=== PATIENT | female | born 1990 | race African-American/Black ===

== ENCOUNTER 2016-11-02 20:10 | Emergency (ER) | payer BC, MEDICAID ==
--- NOTE | 2016-11-02 20:30 | ERNOTE ---
ER Female HPI Date of Service: 11/02/16 - Was at work and after 12 hours of work had a sudden gush of vaginal blood. She had been having some minimal spotting but this was significantly more and ran down her leg. She denies any cramping, pain, or passing any tissue. No lightheadedness, near syncope. Stated Complaint: 13 WEEKS . BLEEDING Presenting Symptoms: vaginal bleeding Time Seen by Provider: 11/02/16 20:27 Source: patient Exam Limitations: no limitations Immunizations: IMMUNIZATION HX Immunizations Up to Date Yes Allergies/Adverse Reactions: Allergies No Known Allergies Allergy (Verified 11/02/16 20:19) Home Medications: HOME MEDICATIONS S 1 tab PO DAILY 11/22/13 [Last Taken 11/22/13 17:14] Nitrofurantoin/Nitrofuran Mac [Macrobid] 100 mg PO Q12H 11/02/16 [Last Taken Unknown] - History of Present Illness Date (Duration): 11/02/16 Time (Timing): 20:00 Timing: Present: constant Prior Abdominal Problems: Present: none, other - Previous 3 years ago. Review of Systems - Review of Systems Constitutional: Present: no symptoms reported ENT: Present: no symptoms reported Respiratory: Present: no symptoms reported Cardiology: Present: no symptoms reported Gastrointestinal/Abdominal: Present: no symptoms reported Genitourinary: Present: no symptoms reported Musculoskeletal: Present: no symptoms reported Neurological: Present: no symptoms reported Hematologic/Lymphatic: Present: other - Blood type O-positive on 05/04/2013 - Patient's Past Medical History Patient History - Cardiac/Respiratory: No pertinent hx Patient History - Cancer: History Unknown Patient History - Surgical Procedures: LMP (females 10-50): other LMP (Calendar): 07/22/16 - Social History Living Situations: home Psych History: No pertinent hx Smoking Status: Current every day smoker Patient requests Smoking Cessation Consult: No Initiate information on Smoking Cessation: No - Immunizations Immunizations Up to Date: Yes Physical Exam - Physical Exam General Appearance: Present: wd/wn, alert, no apparent distress Eye Exam: Normal inspection: bilateral Ears, Nose, Throat: Present: normal ENT inspection Neck: Present: normal inspection Respiratory: Present: no respiratory distress Cardiovascular/Chest: Present: regular rate, rhythm Gastrointestinal/Abdominal: Present: nontender Extremity Exam: Present: normal inspection Neurological Exam: Present: alert, oriented, no motor/sensory deficits Pelvic Exam: Present: discharge - Serosanguinous fluid filling vaginal vault. Once evacuated no evidence of active bleeding. Os not well visualized. No tissue noted. ED Progress - Vital Signs Patient's Vital Signs:: I have reviewed the patient's vital signs. Vital Signs: Vital Signs 11/02/16 20:15 Temperature 36.8 C Pulse Rate 92 Respiratory 18 Rate Blood Pressure 131/92 O2 Sat by Pulse 100 Oximetry - Progress/Reassessment Chief Complaint: Genitourinary Problem Plan - Plan Plan: Rest this weekend. Contact Dr. Fontana on Saturday for follow up. Return to ED if condition worsenes. Departure Clinical Impression: IUP (intrauterine ), incidental, Vaginal bleeding before 22 weeks gestation - Departure Disposition: Home self-care Condition: Good Instructions: Vaginal Bleeding During , Second Trimester, [id number] Additional Instructions: Rest with no strenuous activity or prolonged standing Follow up with OB physician on Saturday Referrals: Rocky Fontana DO [Primary Care Provider] -
[2016-11-02 21:03] LABS: Hematocrit 36.1 % (37.0-47.0); Hemoglobin 12.3 gm/dL (12.5-16.0); Mean Corpuscular Hemoglobin 31.7 pg (27-31); Mean Corpuscular Hgb Conc 34.1 g/dl (32-36); Mean Platelet Volume 9.6 fl (6.0-9.5); Neutrophil # 7.4 K/mm3 (1.3-6.0); Neutrophil % 76.9 % (42-75.0); Platelet Count 203 K/mm3 (150-450); Red Blood Count 3.88 M/mm3 (4.2-5.4); Red Cell Distribution Width 11.8 % (11.5-14.0); White Blood Count 9.6 K/mm3 (4.0-10.5)
[2016-11-02 21:17] LABS: Albumin * 3.7 gm/dl (3.4-5.0); Anion Gap 10.7 mmol/L (6.8-13.8); BUN/Creatinine Ratio 16.7 (9.0-21.6); Bilirubin, Total 0.6 mg/dL (0.0-1.1); Ca. Corrected For Albumin 8.6 mg/dL (8.4-10.2); Calcium * 8.7 mg/dL (7.9-10.9); Carbon Dioxide 28.9 mmol/L (24-32.6); Potassium 3.6 mmol/L (3.4-4.6)
[2016-11-02 22:43] VITALS: BP 117/47
== END 2016-11-02 22:43 | disposition home or self-care (01) ==
LOC: ER 20:10
DX: O20.9 Hemorrhage in early pregnancy, unspecified (principal); F17.200 Nicotine dependence, unspecified, uncomplicated; Z3A.13 13 weeks gestation of pregnancy

== ENCOUNTER 2016-11-29 07:11 | Emergency (ER) | payer BC ==
--- NOTE | 2016-11-29 07:42 | ERNOTE ---
<Jayson Jeong - Last Filed: 11/29/16 08:05> Abdominal HPI - General Chief Complaint: OB Screening Time Seen by Provider: 11/29/16 07:30 Source: patient Exam Limitations: no limitations - Immun/Allergies/Home Medications Immunizatons: IMMUNIZATION HX Immunizations Up to Date Yes History of Influenza Vaccine No Hx Pneumococcal Vaccination No Allergies/Adverse Reactions: Allergies No Known Allergies Allergy (Verified 11/29/16 07:20) Home Medications: HOME MEDICATIONS S 1 tab PO DAILY 11/22/13 [Last Taken 11/22/13 17:14] - History of Present Illness Narrative: 26 yo colored female presents at 17 w GA and states she has been having vaginal bleeding for 3-5 weeks and has been managed by her OB Dr. Fontana. This am she had three clots pass about the size of silver dollars. She has also had uterine cramping today. Timing: getting worse Quality: moderate, stabbing, throbbing Activities at Onset: none Modifying Factors - (Improves): Present: lying down - is better today but was worse yesterday, other - Standing is worse today but was better yesterday Associated Symptoms: Absent: nausea, vomiting Prior Treatment: Present: recently seen, treated by physician Review of Systems - Review of Systems Constitutional: Absent: recent illness, fever, chills EYE: Present: no symptoms reported ENT: Present: no symptoms reported Respiratory: Absent: shortness of breath, cough Cardiology: Absent: chest pain, palpitations Gastrointestinal/Abdominal: Absent: nausea, vomiting, constipation Genitourinary: Present: no symptoms reported Musculoskeletal: Present: no symptoms reported Skin: Present: no symptoms reported Neurological: Present: no symptoms reported Endocrine: Present: no symptoms reported Hematologic/Lymphatic: Present: no symptoms reported Psych: Present: no symptoms reported - Patient's Past Medical History Patient History - Medical: No pertinent hx Patient History - Cardiac/Respiratory: No pertinent hx Patient History - Cancer: History Unknown Patient History - Surgical Procedures: Patient History - Other: None LMP (females 10-50): LMP (Calendar): 07/22/16 - Social History Living Situations: home Abuse History: No History of abuse Psych History: No pertinent hx Smoking Status: Current every day smoker Have you smoked in the past 12 months: Yes Alcohol Use: none Drug Use: none - Immunizations Immunizations Up to Date: Yes Hx Pneumococcal Vaccination: No History of Influenza Vaccine: No Physical Exam - Physical Exam General Appearance: Present: wd/wn, alert, mild distress Respiratory: Present: no respiratory distress, no accessory muscle use Gastrointestinal/Abdominal: Present: nontender, nondistended, soft Back Exam: Present: normal inspection, normal range of motion Extremity Exam: Present: non-tender, normal range of motion, no edema Neurological Exam: Present: alert, oriented, normal mood/affect Skin Exam: Present: normal color, warm/dry Pelvic Exam: Present: active bleeding - vaginal vault full of clots. Very tender upon spec exam. Exam aborted until pain under control and U/S is accomplished ED Progress - Vital Signs Vital Signs: Vital Signs 11/29/16 07:14 Temperature 36.9 C Pulse Rate 87 Respiratory 16 Rate Blood Pressure 122/78 O2 Sat by Pulse 99 Oximetry - Progress/Reassessment Chief Complaint: OB Screening Progress:: Unchanged Progress Note-Subjective: 11/29/16 08:[address] Trevino OB infection control specialist. She will wait for U/S results and further examination of cervix when her pain is under control and give recommendations at that point. - Transfer of Care Physician Sign Out: Jayson Jeong Receiving Physician: Yash Maddox Pending Results: Pain-control - and U/S results Expected Disposition: Discharge Departure - Departure Clinical Impression: Vaginal bleeding before 22 weeks gestation Condition: Poor Instructions: Vaginal Bleeding During , Second Trimester Referrals: Rocky Fontana DO [Staff Physician] - <Yash Maddox - Last Filed: 11/29/16 09:22> Abdominal HPI - Immun/Allergies/Home Medications Immunizatons: IMMUNIZATION HX Immunizations Up to Date Yes History of Influenza Vaccine No Hx Pneumococcal Vaccination No ED Progress - Results and Orders Patient's Lab Results:: I have reviewed the patient's lab results. - Vital Signs Patient's Vital Signs:: I have reviewed the patient's vital signs. Vital Signs: Vital Signs 11/29/16 11/29/16 07:14 08:52 Temperature 36.9 C Pulse Rate 87 67 Respiratory 16 16 Rate Blood Pressure 122/78 115/55 O2 Sat by Pulse 99 100 Oximetry - CT/Ultrasound CT/Ultrasound Narrative: Ultrasound was reviewed and discussed with Dr. Trevino the local OB doctor. Plan - Plan Plan: At length discussion with both the patient and the mother. We discussed that at this point there is a viable present at 18 weeks 3 days, however we also discussed the new subchorionic marginal hematoma and the wrist to the that this hematoma might represent. I discussed with both the patient and the mother the conversation that I had with Dr. Trevino the [facility] OB physician. Dr. Trevino had recommended that the patient go home to bed rest for the next few days, no strenuous activity or lifting of any kind and to call Dr. Kumar Saturday. I relayed to both the patient and the mother that there was nothing medically that we could do at this point short of bed rest and the above recommendations and they both understood and the patient will call her OB physician Saturday. They were instructed to return if there was any extensive bleeding.
[2016-11-29 08:35] LABS: Hematocrit 32.7 % (37.0-47.0); Hemoglobin 11.1 gm/dL (12.5-16.0); Mean Cell Volume 95.6 fl (78-100); Mean Corpuscular Hemoglobin 32.5 pg (27-31); Mean Corpuscular Hgb Conc 33.9 g/dl (32-36); Mean Platelet Volume 9.7 fl (6.0-9.5); Neutrophil # 11.8 K/mm3 (1.3-6.0); Neutrophil % 84.6 % (42-75.0); Platelet Count 178 K/mm3 (150-450); Red Blood Count 3.42 M/mm3 (4.2-5.4); Red Cell Distribution Width 12.3 % (11.5-14.0)
[2016-11-29 08:44] LABS: INR 0.97 INR (0.90-1.10); Prothrombin Time (Patient) 10.1 Seconds (9.4-11.4)
[2016-11-29 08:48] LABS: Anion Gap 10.6 mmol/L (6.8-13.8); BUN/Creatinine Ratio 15.6 (9.0-21.6); Bilirubin, Total 0.4 mg/dL (0.0-1.1); Ca. Corrected For Albumin 8.9 mg/dL (8.4-10.2); Calcium * 8.4 mg/dL (7.9-10.9); Potassium 3.6 mmol/L (3.4-4.6); Total Protein 6.3 gm/dL (6.2-8.2)
[2016-11-29 08:53] VITALS: BP 115/55
== END 2016-11-29 09:44 | disposition home or self-care (01) ==
LOC: ER 07:11
DX: O20.9 Hemorrhage in early pregnancy, unspecified (principal); Z3A.18 18 weeks gestation of pregnancy

== ENCOUNTER 2016-11-29 23:17 | Inpatient (IN) | payer BC ==
[2016-11-29] MEDS ORDERED: ONDANSETRON HCL/PF 2 MG/ML VIAL IV ONE (23:34)
[2016-11-29] MEDS ORDERED: NORMAL SALINE 1,000 ML IV ONE (23:34)
[2016-11-29] MEDS ORDERED: ONDANSETRON HCL/PF 2 MG/ML VIAL ONE (23:36)
--- NOTE | 2016-11-29 23:42 | ERNOTE ---
Abdominal HPI - General Chief Complaint: OB Screening Time Seen by Provider: 11/29/16 23:31 Source: patient, family Exam Limitations: no limitations - Immun/Allergies/Home Medications Immunizatons: IMMUNIZATION HX Immunizations Up to Date Yes History of Influenza Vaccine No Hx Pneumococcal Vaccination No Allergies/Adverse Reactions: Allergies No Known Allergies Allergy (Verified 11/29/16 07:20) Home Medications: HOME MEDICATIONS S 1 tab PO DAILY 11/22/13 [Last Taken 11/22/13 17:14] - History of Present Illness Narrative: Pt was here early this am with vaginal bleeding. U/S was done and showed a 5.4 cm subchorionic hematoma. OB was consulted and she was sent home to bedrest and to follow up with Dr. Fontana on Saturday. Today she continued to worsen throughout the day with dark blood, clots and bright red blood later this evening. She cannot tell me how many pads she has been going through. Her pain has increased as well in both her abdomen and back Timing: getting worse Quality: severe, cramping Activities at Onset: none Modifying Factors - (Worsens): Present: movement Associated Symptoms: Present: back pain, nausea, vomiting Prior Abdominal Problems: Present: similar symptoms Prior Treatment: Present: recently seen, treated by physician Review of Systems - Review of Systems Constitutional: Present: chills. Absent: recent illness, fever EYE: Present: no symptoms reported ENT: Present: no symptoms reported Respiratory: Present: no symptoms reported Cardiology: Present: no symptoms reported Gastrointestinal/Abdominal: Present: nausea, vomiting Genitourinary: Present: See HPI Musculoskeletal: Present: back pain Skin: Present: no symptoms reported Neurological: Present: emotional problems - due to possible loss of this child Endocrine: Present: no symptoms reported Hematologic/Lymphatic: Present: no symptoms reported Psych: Present: no symptoms reported - Patient's Past Medical History Patient History - Medical: No pertinent hx Patient History - Cardiac/Respiratory: No pertinent hx Patient History - Cancer: History Unknown Patient History - Surgical Procedures: Patient History - Other: None LMP (females 10-50): LMP (Calendar): 07/23/16 - Social History Living Situations: home Abuse History: No History of abuse Psych History: No pertinent hx Smoking Status: Current every day smoker Alcohol Use: none Drug Use: none - Immunizations Immunizations Up to Date: Yes Hx Pneumococcal Vaccination: No History of Influenza Vaccine: No Physical Exam - Physical Exam General Appearance: Present: wd/wn, alert, moderate distress, severe distress Neck: Present: normal inspection, supple, full range of motion Respiratory: Present: no respiratory distress, normal breath sounds, lungs clear Cardiovascular/Chest: Present: regular rate, rhythm Gastrointestinal/Abdominal: Present: tenderness - difusely b/l lower quads. Absent: guarding, rebound Back Exam: Present: other - muscular tenderness Neurological Exam: Present: alert, oriented Skin Exam: Present: normal color, warm/dry Pelvic Exam: Present: active bleeding, other - multiple attempts with speculum exam and could not find the cervix due to active bleeding into the vaginal vault and positioning, pt severe discomfort before and with exam. ED Progress - Results and Orders Patient's Lab Results:: I have reviewed the patient's lab results. Results and Orders: Laboratory Tests 11/29/16 11/29/16 11/29/16 23:45 23:45 23:45 WBC 19.4 H D Hgb 12.2 L Hct 36.0 L Plt Count 190 Neutrophils % 87.7 H Sodium 137 Potassium 3.5 Chloride 101 Carbon Dioxide 24.4 Anion Gap 15.1 H BUN 6 Creatinine 0.59 Est GFR (Non-Af Amer) 161 H D BUN/Creatinine Ratio 10.2 Random Glucose 90 Calcium 8.3 Total Bilirubin 0.8 AST 12 ALT 14 L Alkaline Phosphatase 60 Total Protein 6.8 Albumin 3.3 L Urine Color Yellow Urine Appearance Clear Urine pH 6.0 Ur Specific [place] 1.025 Urine Protein Negative Urine Glucose (UA) Negative Urine Ketones Large Urine Blood 50 H Urine Nitrate Negative Urine Bilirubin Negative Urine Urobilinogen Normal Ur Leukocyte Esterase Negative Urine RBC 5-10 H Urine WBC 0-5 Ur Epithelial Cells 10-25 H Urine Bacteria 2+ H Urine Mucus Moderate - 2+ H Urine Yeast Few - 1+ H Urine Culture Comments Culture to follow - Vital Signs Patient's Vital Signs:: I have reviewed the patient's vital signs. Vital Signs: Vital Signs 11/29/16 23:18 Temperature 37.5 C Pulse Rate 97 Respiratory 18 Rate Blood Pressure 148/72 O2 Sat by Pulse 95 Oximetry - CT/Ultrasound CT/Ultrasound Narrative: Single intrauterine with no heart activity demonstrated. anterior placenta with 1.4 cm retroplacental hematoma appropriate volume of amniotic fluid - Progress/Reassessment Chief Complaint: OB Screening Progress:: Unchanged Progress Note-Subjective: 11/30/16 01:48 Pt comes back from U/S still crying out loud in pain despite 10mg of Morphine over the previous hour. Ordered 0.5 mg Dilaudid IV. 11/30/16 02:[address] Trevino, explianed there is now a demise. She recommended Toradol IV and she would come in and see the patient. Departure - Departure Clinical Impression: Intrauterine before 20 weeks of gestation Disposition: [facility] Condition: Serious
[2016-11-29] MEDS ORDERED: MORPHINE SULFATE 2 MG/ML DISP.SYRIN IV ONE (23:51)
[2016-11-29 23:54] LABS: Hemoglobin 12.2 gm/dL (12.5-16.0); Mean Cell Volume 95.2 fl (78-100); Mean Corpuscular Hemoglobin 32.3 pg (27-31); Mean Corpuscular Hgb Conc 33.9 g/dl (32-36); Mean Platelet Volume 9.2 fl (6.0-9.5); Neutrophil % 87.7 % (42-75.0); Platelet Count 190 K/mm3 (150-450); Red Blood Count 3.78 M/mm3 (4.2-5.4); Red Cell Distribution Width 12.1 % (11.5-14.0); White Blood Count 19.4 K/mm3 (4.0-10.5)
[2016-11-29 23:57] LABS: Urine Bilirubin Negative (NEGATIVE); Urine Blood 50 /ul (NEGATIVE); Urine Ketone Large mg/dL (NEGATIVE); Urine Nitrite Negative (NEGATIVE); Urine Protein Negative (NEGATIVE); Urine Specific Gravity 1.025 SP.GR. (1.005-1.010); Urine Urobilinogen Normal (NORMAL)
[2016-11-29] MEDS ORDERED: MORPHINE SULFATE 2 MG/ML DISP.SYRIN ONE (23:59)
[2016-11-30 00:06] LABS: Urine Appearance Clear; Urine Bacteria 2+; Urine Color Yellow; Urine WBC 0-5 /hpf (0-5)
[2016-11-30 00:07] LABS: Urine Mucus Moderate - 2+; Urine Yeast Few - 1+
[2016-11-30 00:14] LABS: Albumin * 3.3 gm/dl (3.4-5.0); Anion Gap 15.1 mmol/L (6.8-13.8); BUN/Creatinine Ratio 10.2 (9.0-21.6); Bilirubin, Total 0.8 mg/dL (0.0-1.1); Ca. Corrected For Albumin 8.5 mg/dL (8.4-10.2); Calcium * 8.3 mg/dL (7.9-10.9); Carbon Dioxide 24.4 mmol/L (24-32.6); Potassium 3.5 mmol/L (3.4-4.6); Total Protein 6.8 gm/dL (6.2-8.2)
[2016-11-30] MEDS ORDERED: MORPHINE SULFATE 2 MG/ML DISP.SYRIN IV ONE ×4 (00:25→01:38)
[2016-11-30] MEDS ORDERED: MORPHINE SULFATE 2 MG/ML DISP.SYRIN ONE ×4 (00:32→01:19)
[2016-11-30] MEDS ORDERED: HYDROmorphone HCL 1 MG/ML DISP.SYRIN IV ONE ×2 (01:42→18:00)
[2016-11-30] MEDS ORDERED: HYDROmorphone HCL 1 MG/ML DISP.SYRIN ONE ×2 (01:47→02:58)
[2016-11-30] MEDS ORDERED: KETOROLAC TROMETHAMINE 30 MG/ML VIAL IV ONE (02:15)
[2016-11-30] MEDS ORDERED: KETOROLAC TROMETHAMINE 30 MG/ML VIAL ONE (02:16)
[2016-11-30] MEDS ORDERED: HYDROmorphone HCL 1 MG/ML DISP.SYRIN IV PRN (02:57)
[2016-11-30] MEDS ORDERED: NALOXONE HCL 1 MG/1 ML SYRG IV PRN ×2 (03:38→03:39)
[2016-11-30] MEDS ORDERED: BUPIVACAINE HCL/0.9 % NACL/PF 250 ML EP PRN ×2 (03:38→03:39)
[2016-11-30] MEDS ORDERED: ONDANSETRON HCL/PF 2 MG/ML VIAL IV PRN ×2 (03:38→03:39)
[2016-11-30] MEDS ORDERED: MISOPROSTOL 100 MCG TABLET VG ONE (03:45)
[2016-11-30] MEDS ORDERED: BUPIVACAINE HCL/PF 30 ML VIAL EP SCH ×2 (03:45)
[2016-11-30] MEDS ORDERED: RINGERS SOLUTION,LACTATED 1,000 ML IV ONE (03:47)
[2016-11-30] MEDS: AMPICILLIN SODIUM 2,000 MG in NORMAL SALINE 100 ML IV SCH ×3 (04:23→22:02)
--- NOTE | 2016-11-30 04:23 | OR ---
Anesthesia Procedure Note - Anesthesia Procedure Note Date of Service: 11/30/16 Narrative: Vital Signs - Last Taken Temp 37.0 C 11/30/16 03:59 Pulse 64 11/30/16 03:59 Resp 22 H 11/30/16 03:59 BP 116/62 11/30/16 03:59 Pulse Ox 100 11/30/16 03:59 O2 Oxygen Delivery Method Room Air 11/30/16 04:21 ANESTHESIA PROCEDURE NOTE Date of Procedure: 11/30/2016. Time of procedure: 404. Performed by: Tip Flores CRNA [employer] Driver: None. Preprocedure diagnosis: Active labor. Post procedure diagnosis: Same. Procedure: Insertion of labor epidural. Indications: The patient is a 26 -year-old -[place] female in active labor requesting labor epidural for pain management. Findings: See below. Details of the procedure: The patient was placed in a sitting position. DuraPrep as well as Betadine swabs 3 was applied to the patient's back. Patient was then draped in a sterile fashion. Lidocaine 1% was infiltrated to the skin and subcutaneous tissues at the level of the L3 4 interspace. The epidural space was identified using a 18-gauge Tuohy needle with loss-of- resistance technique. Epidural catheter was inserted to a depth of 10 centimeters at skin. Negative test dose was elicited using 3 mL of 1.5% preservative-free lidocaine plus epinephrine 1 200,000. The epidural catheter was then taped and secured in place. A loading dose of 8 mL of 0.25% preservative-free bupivacaine was administered to the epidural catheter after negative aspiration for blood and CSF. EBL: Minimal. Fluids: N/A. Specimen: N/A. Post procedure condition: The patient tolerated the procedure well. No complications were noted. Thank you for this consultation. Tip Flores CRNA
[2016-11-30] MEDS: RINGERS SOLUTION,LACTATED 1,000 ML IV PRN ×2 (04:39→11:22)
--- NOTE | 2016-11-30 05:15 | HP ---
Chief Complaint - Chief Complaint Date of Service: 11/30/16 Time of Service: 03:15 Chief Complaint: severe abdominal pain and vaginal bleeding History of Present Illness: 26 yo at 18w3d gestation with PRAKASH of 04/29/2017 by reported LMP of 2016 presents to ER with report of vaginal bleeding and severe abdominal cramping/pain. She reports bleeding ongoing intermittently for last 3 weeks. She reports she was seen by Dr. Fontana for this issue 3 weeks ago. She states bleeding and cramping has significantly worsened over the last 24 hours. She was seen in ER yesterday morning and had ultrasound done which showed a viable fetus and a subchorionic hemorrhage. She was discharged home with expectant management. She states bleeding subsided for awhile, but pain increased with regular cramping. Tylenol and Ibuprofen were ineffective for pain control. She subsequently came back to the ER last night at 11 pm. ER physician reported that he was unsuccessful at attempts to perform speculum exam. She had another ultrasound which showed non-viable fetus. She received 10mg of IV Morphine, 1 mg of IV Dilaudid, and Toradol 30mg IV without relief of her pain. She denies fever, chills, dysuria, diarrhea, or constipation. She reports nausea and vomiting onset after getting IV narcotics. OB HISTORY: 26 yo PRAKASH 04/29/2017 by LMP of 07/23/2016 1. G1 Primary Section for NRFHR status - Patient's Past Medical History Patient History - Medical: No pertinent hx Patient History - Cardiac/Respiratory: No pertinent hx Patient History - Cancer: No Hx of Cancer, History Unknown Patient History - Surgical Procedures: Patient History - Other: None LMP (females 10-50): LMP (Calendar): 07/23/16 - Family History Family History:: no untoward family reactions to anesthesia, no familial bleeding tendencies, no family history of clotting disorders, no family history of premature - Social History Living Situations: home Abuse History: No History of abuse Psych History: No pertinent hx Does anyone smoke in the home?: Yes - patient Smoking Status: Current every day smoker Cigarettes Packs Per Day: 0.5 Have you smoked in the past 12 months: Yes Patient requests Smoking Cessation Consult: No Alcohol Use: none Drug Use: none - Immunizations Immunizations Up to Date: Yes Hx Pneumococcal Vaccination: No History of Influenza Vaccine: No Review Of Systems (GEN) - Review of Systems Generalized/Overall Review: Present: No Symptoms Reported - Pain and vaginal bleeding EENTM: Present: No Symptoms Reported Respiratory: Present: No Symptoms Reported Cardiac: Present: No Symptoms Reported Abdominal: Present: Nausea - after receiving IV narcotics, Vomiting - after receiving IV narcotics, Abdominal Pain - cramping - like labor contractions Genitourinary: Present: Other - Vaginal bleeding with clots, largest is size of silver dollar Musculoskeletal: Present: No Symptoms Reported Neurological: Present: No Symptoms Reported Skin: Present: No Symptoms Reported Immunizations: IMMUNIZATION HX Immunizations Up to Date Yes History of Influenza Vaccine No Hx Pneumococcal Vaccination No Allergies/Adverse Reactions: Allergies Allergy/AdvReac Type Severity Reaction Status Date / Time No Known Allergies Allergy Verified 11/29/16 07:20 Home Medications: HOME MEDICATIONS S 1 tab PO DAILY 11/22/13 [Last Taken 11/22/13 17:14] Exam - Exam Vital Signs: Vital Signs - Last Taken Temp 37.0 C 11/30/16 04:22 Pulse 64 11/30/16 04:22 Resp 22 H 11/30/16 04:22 BP 116/62 11/30/16 04:22 Pulse Ox 100 11/30/16 04:22 Constitutional: Present: Oriented x3, Cooperative, Moderate distress ENT Exam: Present: normal ENT inspection, hearing grossly normal, pharynx normal Eye Exam: bilateral eye: normal inspection Neck: Present: non-tender, full range of motion, supple, normal inspection Back Exam: Present: normal inspection, no CVA tenderness, no vertebral tenderness Breasts: Present: Exam deferred Respiratory: Present: lungs clear, normal breath sounds, no respiratory distress , No rales, No wheezing Cardiovascular/Chest: Present: normal peripheral pulses, regular rate, rhythm, no edema, no gallop, no JVD, no murmur, no rub Peripheral Pulses: dorsalis-pedis (R): 2+, dorsalis-pedis (L): 2+ Abdomen: Present: Normal bowel sounds, soft, nondistended, tender - during contractions, no fundal tenderness, negative Villanueva sign /Rectal: Present: External genitalia normal, Other - No significant blood in vault seen on speculum exam Cervix is barely a fingertip dilated/70%/bulging presenting part palpated behind cervical os. Foul odor is noted on exam. 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, alert, oriented x 3 Appearance: Present: appropriate appearance Eye contact: Present: cooperative, avoids eye contact Thoughts: Present: normal thought pattern Diagnostic Studies: Laboratory Results WBC 19.4 K/mm3 (4.0-10.5) H D 11/29/16 23:45 RBC 3.78 M/mm3 (4.2-5.4) L 11/29/16 23:45 Hgb 12.2 gm/dL (12.5-16.0) L 11/29/16 23:45 Hct 36.0 % (37.0-47.0) L 11/29/16 23:45 MCV 95.2 fl (78-100) 11/29/16 23:45 MCH 32.3 pg (27-31) H 11/29/16 23:45 MCHC 33.9 g/dl (32-36) 11/29/16 23:45 RDW 12.1 % (11.5-14.0) 11/29/16 23:45 Plt Count 190 K/mm3 (150-450) 11/29/16 23:45 MPV 9.2 fl (6.0-9.5) 11/29/16 23:45 Immature Gran % (Auto) 0.70 % (0.001-0.429) H 11/29/16 23:45 Immature Gran # (Auto) 0.14 K/mm3 (0.000-0.0310) H 11/29/16 23:45 Neutrophils % 87.7 % (42-75.0) H 11/29/16 23:45 Lymphocytes % 6.0 % (20-51) L 11/29/16 23:45 Monocytes % 5.3 % (0.0-9) 11/29/16 23:45 Eosinophils % 0.1 % (0.0-3.0) 11/29/16 23:45 Basophils % 0.2 % (0.0-1.0) 11/29/16 23:45 Nucleated RBC % 0.0 k/mm3 (0-1) 11/29/16 23:45 Neutrophils # 17.0 K/mm3 (1.3-6.0) H 11/29/16 23:45 Lymphocytes # 1.2 k/mm3 (1.5-3.5) L 11/29/16 23:45 Monocytes # 1.0 k/mm3 (0.0-1.0) 11/29/16 23:45 Eosinophils # 0.0 k/mm3 (0.0-0.7) 11/29/16 23:45 Absolute Basophils 0.0 k/mm3 (0.0-0.1) 11/29/16 23:45 Sodium 137 mmol/L (132-142) 11/29/16 23:45 Plasma Sodium 137 mmol/L (130-142) 11/29/16 23:45 Potassium 3.5 mmol/L (3.4-4.6) 11/29/16 23:45 Chloride 101 mmol/L (97-106) 11/29/16 23:45 Carbon Dioxide 24.4 mmol/L (24-32.6) 11/29/16 23:45 Anion Gap 15.1 mmol/L (6.8-13.8) H 11/29/16 23:45 BUN 6 mg/dL (3-23) 11/29/16 23:45 Creatinine 0.59 mg/dL (0.4-1.4) 11/29/16 23:45 Est GFR (Non-Af Amer) 161 mL/min (60-130) H D 11/29/16 23:45 BUN/Creatinine Ratio 10.2 (9.0-21.6) 11/29/16 23:45 Random Glucose 90 mg/dL (70-110) 11/29/16 23:45 Calcium 8.3 mg/dL (7.9-10.9) 11/29/16 23:45 Calcium Adj for Albumin 8.5 mg/dL (8.4-10.2) 11/29/16 23:45 Total Bilirubin 0.8 mg/dL (0.0-1.1) 11/29/16 23:45 AST 12 U/L (0-48) 11/29/16 23:45 ALT 14 U/L (19-67) L 11/29/16 23:45 Alkaline Phosphatase 60 U/L (50-170) 11/29/16 23:45 Total Protein 6.8 gm/dL (6.2-8.2) 11/29/16 23:45 Albumin 3.3 gm/dl (3.4-5.0) L 11/29/16 23:45 Urine Color Yellow 11/29/16 23:45 Urine Appearance Clear 11/29/16 23:45 Urine pH 6.0 pH (5.0-7.0) 11/29/16 23:45 Ur Specific [place] 1.025 SP.GR. (1.005-1.010) 11/29/16 23:45 Urine Protein Negative mg/dL (NEGATIVE) 11/29/16 23:45 Urine Glucose (UA) Negative mg/dL (NEGATIVE) 11/29/16 23:45 Urine Ketones Large mg/dL (NEGATIVE) 11/29/16 23:45 Urine Blood 50 /ul (NEGATIVE) H 11/29/16 23:45 Urine Nitrate Negative (NEGATIVE) 11/29/16 23:45 Urine Bilirubin Negative mg/dl (NEGATIVE) 11/29/16 23:45 Urine Urobilinogen Normal EU/dl (NORMAL) 11/29/16 23:45 Ur Leukocyte Esterase Negative /ul (NEGATIVE) 11/29/16 23:45 Urine RBC 5-10 /hpf (0-5) H 11/29/16 23:45 Urine WBC 0-5 /hpf (0-5) 11/29/16 23:45 Ur Epithelial Cells 10-25 /hpf (0-5) H 11/29/16 23:45 Urine Bacteria 2+ (NONE) H 11/29/16 23:45 Urine Mucus Moderate - 2+ (NONE) H 11/29/16 23:45 Urine Yeast Few - 1+ (NONE) H 11/29/16 23:45 Urine Culture Comments Culture to follow 11/29/16 23:45 Assessment/Plan - Narrative Narrative: 26 yo at 18w3d gestation with IUFD. PLAN: 1. Anesthesia called to place epidural for pain relief. 2. PT is afebrile, but WBC elevated, foul odor on exam. Suspect likely chorioamnionitis. Will initiate IV Ampicillin 2 grams every 6 hours. 3. NPO. Initiate IVF with LR 4. Obtain T&S 5. I personally reviewed u/s images and discussed results with patient in detail. Findings are consistent with IUFD. Patient counseled on options for management including cytotec augmentation vs dilation and evacuation. She elected to proceed with cytotec augmentation. Will place Cytotec 200mcg per vagina following epidural placement. 6. Patient is counseled regarding risk of retained placenta following delivery of her non-viable fetus. Potential for subsequent suction dilation and curettage to evacuate placenta was discussed. She verbalized understanding and agrees to plan of care including Cytotec augmentation and possible suction dilation and curettage.
[2016-11-30] MEDS ORDERED: MISOPROSTOL 100 MCG TABLET ONE ×2 (05:16→12:38)
--- NOTE | 2016-11-30 06:32 | PN ---
Progess Note - Interim Narrative: 11/30/16 05:30 Pt is much more comfortable s/p epidural. Cytotec 200mcg was placed vaginally in the posterior fornix. Cervix: Fingertip/80%/-1/soft/posterior Anticipatory guidance regarding expectations for delivery of IUFD were reviewed with patient in detail. At this time she declines autopsy and genetic testing of her baby. Continue IV Ampicillin. Epidural appears to be effective.
--- NOTE | 2016-11-30 10:37 | PN ---
Progess Note - Interim Narrative: 11/30/16 10:34 Judith reports she is comfortable. VS: Temperature is 37 C, MHR 74, RR 18, BP 123/60, pox 100% room air TOCO: contractions every 2 minutes Cervix: 1.5 cm/50%/-1/soft/posterior Abdomen: gravid, soft, non-tender
[2016-11-30] MEDS ORDERED: OXYTOCIN/DEXTROSE 5%-WATER 30 UNITS/500 ML BAG IV ONE ×2 (11:48→15:23)
--- NOTE | 2016-11-30 12:49 | PN ---
Progess Note - Interim Narrative: 11/30/16 12:46 Pt denies complaints. TOCO: very irregular Cervix: 3cm/80%/0/soft/posterior vertex presentation on exam and confirmed by earlier ultrasound inadvertent ROM occurred with digital exam. Dark wine colored fluid noted. Cytotec 200 mcg placed in posterior fornix of vagina. Continue IV Antibiotics Anticipate
[2016-11-30] MEDS ORDERED: MISOPROSTOL 200 MCG TABLET PO SCH (13:00)
[2016-11-30] MEDS ORDERED: BISACODYL 10 MG SUPP.RECT RC PRN (15:23)
[2016-11-30] MEDS ORDERED: oxyCODONE HCL/ACETAMINOPHEN 1 TAB TABLET PO PRN (15:23)
[2016-11-30] MEDS ORDERED: HYDROCORTISONE 30 APPL TUBE TP PRN (15:23)
[2016-11-30] MEDS ORDERED: IBUPROFEN 600 MG TABLET PO PRN (15:23)
[2016-11-30] MEDS ORDERED: BENZOCAINE/MENTHOL 81 SPRAY CAN TP PRN (15:23)
[2016-11-30] MEDS ORDERED: GLYCERIN/WITCH HAZEL LEAF 40 APPL BOX TP PRN (15:23)
[2016-11-30] MEDS ORDERED: SENNOSIDES 8.6 MG TABLET PO PRN (15:23)
--- NOTE | 2016-11-30 15:38 | OR ---
Operative Report - Dictated Report Narrative: DELIVERY NOTE DATE OF DELIVERY: 11/30/2016 DELIVERING PHYSICIAN: Ricki Trevino MD Judith progressed to 5 cm dilation and delivered a premature, stillborn male infant in the cephalic presentation, over an intact perineum. weight was 224 grams. Apgars 0 at minute and 0 at five minutes. Cord was clamped and cut. Placenta spontaneously delivered a few minutes later and was found to be intact. Fundus was firm, EBL was 100 ml. IV Pitocin was intiiated. Baby appeared to be grossly normal without apparent malformation. Mom is doing well in LDRP.
[2016-11-30] MEDS: DOCUSATE SODIUM 100 MG CAPSULE PO SCH (21:25)
[2016-11-30 22:08] LABS: Hematocrit 29.7 % (37.0-47.0); Hemoglobin 10.2 gm/dL (12.5-16.0); Mean Cell Volume 93.4 fl (78-100); Mean Corpuscular Hemoglobin 32.1 pg (27-31); Mean Corpuscular Hgb Conc 34.3 g/dl (32-36); Platelet Count 75 K/mm3 (150-450); Red Blood Count 3.18 M/mm3 (4.2-5.4); Red Cell Distribution Width 12.5 % (11.5-14.0); White Blood Count 20.2 K/mm3 (4.0-10.5)
[2016-11-30 22:23] LABS: Total Cells Counted 100
[2016-11-30 22:27] LABS: Band 4 % (0-2.0); Lymphocyte 2 % (20-51); Monocyte 4 % (0-9); Neutrophil 90 % (42-75); Neutrophil # 18.2 K/mm3 (1.3-6.0)
[2016-11-30 22:29] LABS: Dohle Bodies 1+; Ovalocytes 1+; Platelet Estimate Decreased (NORMAL); RBC Morphology Normal (NORMAL); Toxic Granulation 1+
[2016-11-30] MEDS ORDERED: KETOROLAC TROMETHAMINE 30 MG/ML VIAL IV PRN (23:00)
[2016-11-30] MEDS: HYDROcodone/ACETAMINOPHEN 1 EACH TABLET PO PRN (23:10)
--- NOTE | 2016-12-01 01:34 | PN ---
Subjective - Date and Time Seen Date: 12/01/16 Time: 01:20 Subjective Narrative: Denies complaints. Denies fever, chills, nausea or vomiting. She reports painful cramping after epidural wore off. She reports [place] and Motrin are giving effective pain relief. Minimal lochia. Objective - Review of Systems Generalized/Overall Review: Reports: No Symptoms Reported EENTM: Reports: No Symptoms Reported Respiratory: Reports: No Symptoms Reported Cardiac: Reports: No Symptoms Reported Abdominal: Reports: Abdominal Pain Genitourinary Symptoms: Reports: No Symptoms Reported Musculoskeletal Complaints: Reports: No Symptoms Reported Neurological: Reports: No Symptoms Reported Skin: Reports: No Symptoms Reported Endocrine: Reports: No Symptoms Reported - Vitals Vitals: Last Vital Signs Temp 36.8 C 11/30/16 19:57 Pulse 81 11/30/16 19:57 Resp 18 11/30/16 19:57 BP 135/63 11/30/16 19:57 Pulse Ox 99 11/30/16 18:00 - Abnormal Lab Findings Abnormal Lab Findings: Abnormal Lab Results 11/30/16 Range/Units 22:02 WBC 20.2 H (4.0-10.5) K/mm3 RBC 3.18 L (4.2-5.4) M/mm3 Hgb 10.2 L (12.5-16.0) gm/dL Hct 29.7 L (37.0-47.0) % MCH 32.1 H (27-31) pg Plt Count 75 L (150-450) K/mm3 MPV 10.0 H (6.0-9.5) fl Neutrophils % (Manual) 90 H (42-75) % [place] Neuts % (Manual) 4 H (0-2.0) % Lymphocytes % (Manual) 2 L (20-51) % Neutrophils # (Manual) 18.2 H (1.3-6.0) K/mm3 Lymphocytes # (Manual) 0.4 L (1.5-3.5) k/mm3 Platelet Estimate Decreased L (NORMAL) - Exam Constitutional: Present: Oriented x3, Cooperative, No distress ENT Exam: Present: normal ENT inspection, hearing grossly normal, pharynx normal , nasal congestion Neck: Present: non-tender, full range of motion, supple, normal inspection Breasts: Present: Exam deferred Respiratory: Present: lungs clear, normal breath sounds, No rales, No wheezing Cardiovascular/Chest: Present: normal peripheral pulses, regular rate, rhythm, no edema, no JVD, no murmur Abdomen: Present: Normal bowel sounds, soft, nondistended, other - slight fundal tenderness /Rectal: Present: External genitalia normal Extremity: Present: normal range of motion, non-tender, normal inspection, no pedal edema, no calf tenderness Skin Exam: Present: normal color, warm/dry Lymphatic: Present: no adenopathy Neurologic: Present: alert, normal mood/affect, oriented x 3 Appearance: Present: appropriate appearance, appropriate insight Eye contact: Present: cooperative, good eye contact Thoughts: Present: normal thought pattern Cauti Physician Documentation - Urinary Catheter Management Uretheral (Ron) Date of Insertion: 11/30/16 Time of Insertion: 04:47 Date of Removal: 11/30/16 Time of Removal: 17:15 Assessment/Plan Plan Narrative: PPD#1 s/p of IUFD at 18w3d gestation with suspected chorioamnionitis and subchorionic bleed. PLAN: 1. Continue IV Antibiotics for 24 hour . Will discharge home on Doxycycline 100mg BID for 7 days. 2. [place] and NSAIDs prn pain control 3. Fever and bleeding precautions d/w pt. 4. Plan discharge home this afternoon if stable. 5. F/u in office in 2 weeks and prn. 6. Declines autopsy and genetic testing.
[2016-12-01] MEDS: HYDROcodone/ACETAMINOPHEN 1 EACH TABLET PO PRN ×2 (03:00→08:06)
[2016-12-01] MEDS: AMPICILLIN SODIUM 2,000 MG in NORMAL SALINE 100 ML IV SCH ×3 (04:58→10:22)
[2016-12-01] MEDS: DOCUSATE SODIUM 100 MG CAPSULE PO SCH (08:06)
[2016-12-01] MEDS ORDERED: PRENATAL VIT#96/FERROUS FUM/FA 1 TAB TABLET PO SCH (09:00)
[2016-12-01 14:14] VITALS: BP 120/62
== END 2016-12-01 12:00 | disposition home or self-care (01) | DRG 779 ==
LOC: ER 23:17 → OB 11-30 02:49 → MS 12-01 06:44
PROVIDERS: ADMIT Obstetrics & Gynecology; ATTEND Obstetrics & Gynecology
PROC: 10E0XZZ Delivery of Products of Conception, External Approach (ICD-10-PCS; principal; 2016-11-30)
PROC: 3E0S3CZ (ICD-10-PCS; 2016-11-30)
DX: O02.1 Missed abortion (principal); Z3A.18 18 weeks gestation of pregnancy; Z37.1 Single stillbirth
CPT/HCPCS: 36415; 59025; 59821; 76815; 80053; 81001; 85007; 85025; 86850; 86900; 87070; 87077; 87086; 87186; 96365; 96375; 99285; J2405